=== PATIENT | female | born 1980 | race Caucasian/White ===

== ENCOUNTER 2021-06-13 13:08 | Emergency (ER) | payer MEDICAID ==
--- NOTE | 2021-06-13 13:27 | ED Physician Documentation ---
PD HPI SKIN - Stated complaint Stated Complaint: NECK PX,ABD PX - Chief complaint Chief Complaint: Back Pain - History obtained from History obtained from: Patient - History of Present Illness Timing - onset: How many weeks ago (1-2) Timing - duration: Weeks Timing - details: Gradual onset, Still present, Intermittant (regarding upper abd pains), Waxing and waning (regarding neck pain) Location: Neck, Other (Patient presents with several different complaints. 1 is a lump feeling in the back of her neck to the right of midline that is slightly tender and has been present for a long time. Also is new upper abdomen episodic spasming type pain that lasts for few minutes at a time uncorrelated with eating.) Quality / character: Other (slightly tender lump back of neck and feels that there is lump/fullness back of throat with swallowing.) Associated symptoms: Myalgias (chronic), Abd pain (eipsodic upper abd cramping pain for few minutes at a time, not correlated with food, position, activity.). No: Fever, Headache, N/V/D Similar symptoms before: Has not had sx before, Other (Regarding the neck pain, she has had herniated disc with canal stenosis at C5-6 by prior MRIs. No prior diagnosis with the lump in the neck nor the epigastric pain.) Recently seen: Not recently seen (had not gotten PMD since moving here in December. 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 ) Respiratory: None Endocrine/Autoimmune: None Musculoskeletal: Other (Julio Millan) - Present Medications Home Medications: Ambulatory Orders Medication Instructions Recorded Confirmed FLUoxetine [PROzac] 10 mg PO DAILY 06/13/21 06/13/21 Famotidine [Pepcid] 20 mg PO DAILY #20 tablet 06/13/21 - Allergies Allergies/Adverse Reactions: Allergies Allergy/AdvReac Type Severity Reaction Status Date / Time duloxetine [From Cymbalta] Allergy Unknown Verified 06/13/21 13:21 metoclopramide [From Reglan] Allergy Unknown Verified 06/13/21 13:21 - Living Situation Living Arrangement: reports: At home, Other (moved to [facility] December 2020. ) - Social History Does the pt smoke?: No Does the pt drink ETOH?: No Does the pt have substance abuse?: No - Family History Family history: reports: Other (Julio Millan) PD ED PE NORMAL - Vitals Vital signs reviewed: Yes - General General: Alert and oriented X 3, No acute distress, Well developed/nourished, Other (somewhat anxious. ) - HEENT HEENT: Moist mucous membranes, Pharynx benign - Neck Neck: Supple, no meningeal sign, No adenopathy, Thyroid normal, Other (posterior neck right of midline about C5 level with small pea-sized firm lump under skin that seems movable with neck movement separate from bony structures. ) - Cardiac Cardiac: RRR, No murmur - Respiratory Respiratory: Clear bilaterally - Abdomen Abdomen: Normal bowel sounds, Soft, Non distended, No organomegaly, Other (mild tender without guarding RUQ/epigastric. ) - Back Back: No CVA TTP - Derm Derm: Normal color, Warm and dry - Neuro Neuro: Alert and oriented X 3, No motor deficit, No sensory deficit, Normal speech Results - Vitals Vitals: Vital Signs - 24 hr 06/13/21 06/13/21 13:15 15:38 Temperature 36.6 C Heart Rate 111 H 80 Respiratory 18 17 Rate Blood Pressure 128/75 108/62 O2 Saturation 100 99 Oxygen O2 Source Room air - Labs Labs: Laboratory Tests 06/13/21 06/13/21 06/13/21 15:16 15:16 15:16 WBC 7.6 RBC 3.86 L Hgb 11.2 L Hct 34.0 L MCV 88.1 MCH 29.0 MCHC 32.9 RDW 15.7 H Plt Count 283 MPV 9.7 Neut # (Auto) 4.9 Lymph # (Auto) 2.1 [place] # (Auto) 0.5 Eos # (Auto) 0.1 Baso # (Auto) 0.1 Absolute Nucleated RBC 0.00 Nucleated RBC % 0.0 ESR 8 Sodium 139 Potassium 4.0 Chloride 104 Carbon Dioxide 26 Anion Gap 9.0 BUN 12 Creatinine 0.6 Estimated GFR (MDRD) 109 Glucose 97 Calcium 9.1 Magnesium 1.9 Total Bilirubin 0.4 AST 19 ALT 26 Alkaline Phosphatase 44 Total Protein 6.8 Albumin 4.3 Globulin 2.5 Albumin/Globulin Ratio 1.7 Lipase 33 TSH 06/13/21 15:16 WBC RBC Hgb Hct MCV MCH MCHC RDW Plt Count MPV Neut # (Auto) Lymph # (Auto) [place] # (Auto) Eos # (Auto) Baso # (Auto) Absolute Nucleated RBC Nucleated RBC % ESR Sodium Potassium Chloride Carbon Dioxide Anion Gap BUN Creatinine Estimated GFR (MDRD) Glucose Calcium Magnesium Total Bilirubin AST ALT Alkaline Phosphatase Total Protein Albumin Globulin Albumin/Globulin Ratio Lipase TSH 0.70 - Rads (name of study) abd U/S Radiology: Prelim report reviewed (gallstone in fundus, nonmobile per tech. No acute findings otherwise per report. ), See rad report soft tissue neck CT Radiology: Prelim report reviewed (Right sided aortic arch with some compression on the esophagus. Upper esophageal area and neck structures are normal. No reported abnormality in the area of the lump.), EMP read contemporaneously (My view of the CT shows perhaps some small thickening of soft tissue at the area of the posterior lump possibly considering lipoma. No cystic structure nor bony structure.), See rad report PD MEDICAL DECISION MAKING - ED course Complexity details: reviewed results, considered differential (3 complaints of: 1 chronic neck pain with C5-6 herniated disc by prior imaging and having ongoing neck pain, to #2 small lump feeling in the back of the neck adjacent to the spine area for 2 to 3 weeks, #3 episodic epigastric to right upper quadrant pains lasting few minutes at a time the past 2 wks), d/w patient ED course: She has had a noted lump feeling in the right paracervical area for several months but is slightly tender now. She also has a feeling of a fullness in the back of her throat with swallowing is concerned that they are connected. She does have history of chronic neck pain from disc disease and canal stenosis. Denies upper extremity weakness or numbness consistently. Occasionally numb in the left arm. She also notes more currently a couple weeks of intermittent epigastric to right upper quadrant spasmodic pain lasting seconds to a few minutes not correlated with breathing breathing, particular movements, injury, eating. It occurs randomly. No consistent pain Departure - Departure Disposition: Home, Self Care Clinical Impression: Epigastric pain, Lump in neck, Neck pain Condition: Stable Record reviewed to determine appropriate education?: Yes Follow-Up: Alex Cotto [Primary Care Provider] - Prescriptions: Famotidine [Pepcid] 20 mg PO DAILY #20 tablet Comments: Your neck imaging shows a right sided aortic arch which does pressure on the esophagus anatomically. This could give some discomfort with swallowing but would be more in the chest area not in the throat or neck area that you have been feeling. There is no obvious abnormality in that area. The posterior neck lump that you are feeling also as not having a visible structure per se on imaging. There is perhaps some lower density soft tissue in that area that may be consistent with a lipoma but no obvious cyst or bony structure etc. Your ultrasound shows a gallstone in the body of the gallbladder but its not mobile there is no sign of wall thickening. This is less likely that this is causing problems. Potentially it could associate with episodic gallbladder spasms. However your episodic upper abdominal pain may relate more to reflux or irritation of the stomach or esophagus. I would suggest daily famotidine as an acid reducing medicine and see if that improves things. Continue usual medications. Follow-up with your new provider in 3 weeks as planned. Your new provider will need to refer you to a neck specialist for further evaluation of your known disc disease.
[2021-06-13] MEDS ORDERED: SODIUM CHLORIDE 0.9% 1,000 ML IV STA (14:05)
[2021-06-13] MEDS ORDERED: IOVERSOL 320 100 ML VIAL IVP ONE ×2 (14:20→17:25)
[2021-06-13 15:25] LABS: BASOPHILS # (AUTO) 0.1 10^3/uL (0.0-0.1); BASOPHILS % (AUTO) 0.8 %; EOSINOPHILS # (AUTO) 0.1 10^3/uL (0.0-0.7); EOSINOPHILS % (AUTO) 1.1 %; HGB - HEMOGLOBIN 11.2 g/dL (12.0-16.0); LYMPHOCYTES # (AUTO) 2.1 10^3/uL (1.5-3.5); LYMPHOCYTES % (AUTO) 27.6 %; MEAN CORPUSCULAR HGB CONC 32.9 g/dL (32.0-36.0); MEAN CORPUSCULAR VOLUME 88.1 fL (81.0-99.0); MEAN PLATELET VOLUME 9.7 fL (7.9-10.8); MONOCYTES # (AUTO) 0.5 10^3/uL (0.0-1.0); MONOCYTES % (AUTO) 6.3 %; NEUTROPHILS # (AUTO) 4.9 10^3/uL (1.5-6.6); NEUTROPHILS % (AUTO) 63.9 %; PLT - PLATELET COUNT 283 10^3/uL (130-450); RED BLOOD COUNT 3.86 10^6/uL (4.20-5.40); RED CELL DISTRIBUTION WIDTH 15.7 % (12.0-15.0); WHITE BLOOD COUNT 7.6 x10^3/uL (4.8-10.8)
[2021-06-13 15:36] LABS: ALBUMIN 4.3 g/dL (3.2-5.5); ALBUMIN/GLOBULIN RATIO 1.7 (1.0-2.2); BILIRUBIN,TOTAL 0.4 mg/dL (0.2-1.0); CALCIUM 9.1 mg/dL (8.5-10.3); CREATININE 0.6 mg/dL (0.4-1.0); MAGNESIUM 1.9 mg/dL (1.7-2.8); TOTAL PROTEIN 6.8 g/dL (6.7-8.2)
--- NOTE | 2021-06-13 16:17 | Ultrasound Report ---
PROCEDURE: Abdomen Limited, ultrasound INDICATIONS: right upper abd pain intermittently TECHNIQUE: Real-time focused scanning was performed of the abdomen, with image documentation. COMPARISON: None FINDINGS: Liver: Normal is size and echotexture. No evidence of focal mass lesion. No intra hepatic biliary ductal dilatation. Gallbladder: Cholelithiasis noted without gallbladder wall thickening or pericholecystic fluid Common Bile Duct: 0.3 mm. Pancreas: Unremarkable as visualized. Right Kidney: Appropriate in size and echotexture. No evidence of hydronephrosis. No shadowing calc kristyn. No solid or cystic mass lesion. IMPRESSION: 1. Cholelithiasis without ultrasound evidence of acute cholecystitis Reviewed by: Carlos Anton MD on 06/13/2021 3:15 PM AKDT Approved by: Carlos Anton MD on 06/13/2021 3:15 PM AKDT Station ID: [id number]
--- NOTE | 2021-06-13 16:19 | CT Report ---
PROCEDURE: SOFT TISSUE NECK W INDICATIONS: right paracervical lump and feeling of lump swallo CONTRAST: IV CONTRAST: Optiray 320 ml: 100 PO CONTRAST: *NO PO CONTRAST TECHNIQUE: After the administration of intravenous contrast, 3.0 mm axial sections acquired from the sella to th e aortic arch. Additional oblique axial 3.0 mm sections acquired through the pharynx. 3 mm thick co woody reformats were generated. For radiation dose reduction, the following was used: automated exp osure control, adjustment of mA and/or kV according to patient size. COMPARISON: None. FINDINGS: Image quality: Excellent. Lymph nodes: No enlarged lymph nodes seen throughout the neck. 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 This is seen posterior to t he esophagus, with mass effect upon the esophagus itself. This can be seen on series 4 image 112. Neck spaces: The oropharynx, nasopharynx, and pharynx demonstrate no mucosal lesions. The vocal cor ds, false vocal cords, pyriform sinuses, epiglottis, vallecula, and tongue base all appear normal. E xtramucosal spaces appear unremarkable. Glands: The parotid and submandibular glands appear normal. The thyroid is normal in size and there are no incidental findings. Miscellaneous: Visualized brain and orbits appear normal. Lung apices appear clear. Superficial so ft tissues appear normal. Bones: No suspicious bony lesions. Visualized sinuses and mastoids appear unremarkable. 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 This demonstrates prominent mass effect u herlinda the esophagus and is the cause of the patient's dysphagia until proven otherwise. No mucosal masses are seen. No enlarged lymph nodes are seen. Reviewed by: Fabricio Chatterjee MD on 06/13/2021 3:18 PM CODEY Approved by: Fabricio Chatterjee MD on 06/13/2021 3:18 PM AKCHEPE Station ID: [id number]
[2021-06-13 17:02] VITALS: BP 114/60
== END 2021-06-13 17:02 | disposition home or self-care (01) ==
LOC: ED 13:08
DX: M54.2 Cervicalgia (principal); R22.1 Localized swelling, mass and lump, neck
CPT/HCPCS: 36415; 70491; 76705; 80053; 83690; 83735; 84443; 85025; 85651; 99284; Q9967

== ENCOUNTER 2021-12-18 13:00 | Emergency (ER) | payer MEDICAID, OTHER ==
[2021-12-18 13:13] VITALS: BP 134/96
== END 2021-12-18 13:50 | disposition left against medical advice (07) ==
LOC: ED 13:00
DX: Z53.29 Procedure and treatment not carried out because of patient's decision for other reasons (principal)

== ENCOUNTER 2022-01-31 11:51 | Outpatient (CLI) | payer MEDICAID ==
[2022-01-31 12:21] LABS: BASOPHILS % (AUTO) 0.7 %; EOSINOPHILS # (AUTO) 0.1 10^3/uL (0.0-0.7); EOSINOPHILS % (AUTO) 1.1 %; HCT - HEMATOCRIT 39.7 % (37.0-47.0); HGB - HEMOGLOBIN 13.2 g/dL (12.0-16.0); LYMPHOCYTES # (AUTO) 1.6 10^3/uL (1.5-3.5); LYMPHOCYTES % (AUTO) 29.1 %; MEAN CORPUSCULAR HEMOGLOBIN 31.7 pg (27.0-31.0); MEAN CORPUSCULAR HGB CONC 33.2 g/dL (32.0-36.0); MEAN CORPUSCULAR VOLUME 95.4 fL (81.0-99.0); MEAN PLATELET VOLUME 9.7 fL (7.9-10.8); MONOCYTES # (AUTO) 0.5 10^3/uL (0.0-1.0); MONOCYTES % (AUTO) 9.4 %; NEUTROPHILS # (AUTO) 3.3 10^3/uL (1.5-6.6); NEUTROPHILS % (AUTO) 59.5 %; PLT - PLATELET COUNT 276 10^3/uL (130-450); RED BLOOD COUNT 4.16 10^6/uL (4.20-5.40); RED CELL DISTRIBUTION WIDTH 11.7 % (12.0-15.0); WHITE BLOOD COUNT 5.6 x10^3/uL (4.8-10.8)
[2022-01-31 12:23] LABS: ALBUMIN 4.7 g/dL (3.2-5.5); ALBUMIN/GLOBULIN RATIO 1.7 (1.0-2.2); BILIRUBIN,TOTAL 0.6 mg/dL (0.2-1.0); CALCIUM 9.4 mg/dL (8.5-10.3); CREATININE 0.6 mg/dL (0.4-1.0); POTASSIUM 4.2 mmol/L (3.5-5.0); TOTAL PROTEIN 7.4 g/dL (6.7-8.2)
[2022-01-31 12:31] LABS: BILIRUBIN,URINE NEGATIVE (NEGATIVE); GLUCOSE, URINE (UA) NEGATIVE (NEGATIVE); KETONES,URINE (UA) NEGATIVE (NEGATIVE); LEUKOCYTE ESTERASE, URINE NEGATIVE (NEGATIVE); NITRITE,URINE NEGATIVE (NEGATIVE); OCCULT BLOOD,URINE NEGATIVE (NEGATIVE); PH,URINE 7.5 PH (5.0-7.5); PROTEIN,URINE NEGATIVE (NEGATIVE); UROBILINOGEN,URINE 0.2 (NORMAL) E.U./dL (NORMAL)
[2022-01-31 12:35] LABS: CLARITY,URINE CLEAR (CLEAR)
[2022-01-31 12:37] LABS: BACTERIA,URINE Rare /HPF (None Seen); RBC,URINE None Seen /HPF (0-5); SQUAMOUS EPITHELIAL CELL,UR RARE Squamous (<= Few); WBC,URINE 0-3 /HPF (0-5)
== END 2022-01-31 11:52 | disposition home or self-care (01) ==
LOC: LAB 11:51
PROVIDERS: ATTEND Nurse Practitioner
DX: R10.11 Right upper quadrant pain (principal)
CPT/HCPCS: 36415; 80053; 81001; 82150; 83690; 85025; 87086

== ENCOUNTER 2022-02-01 12:00 | Outpatient (CLI) | payer MEDICAID ==
[2022-02-02 20:04] LABS: H. PYLORIS ANTIGEN STL NEGATIVE (Negative)
== END 2022-02-01 23:59 | disposition home or self-care (01) ==
LOC: LAB 12:00
PROVIDERS: ATTEND Nurse Practitioner
DX: R10.11 Right upper quadrant pain (principal)
CPT/HCPCS: 87338

== ENCOUNTER 2022-03-07 11:51 | Outpatient (CLI) | payer MEDICAID ==
--- NOTE | 2022-03-07 16:29 | Ultrasound Report ---
PROCEDURE: Pelvic w/Transvaginal INDICATIONS: UTERINE FIBROIDS TECHNIQUE: Real-time scanning was performed of the pelvic organs, with image documentation. Additional endovagi nal scanning was necessary due to incomplete visualization of the adnexal and endometrial structures by transabdominal scanning. COMPARISON: None. FINDINGS: Uterus: Uterus is anteverted and normal in size at 7.8 x 5.7 x 4.1 cm. The myometrium is diffusely heterogeneous and there is decreased definition of the endometrial stripe.. The endometrium measures about 7 mm in combined thickness. There is a 7 mm heterogeneously hypoechoic intramural mass in the anterior midline fundus. A 4 mm anterior myometrial mass towards the lower uterine segment demonstra manolo more homogeneous hypoechogenicity. No significant internal vascular flow. Nabothian cysts are present in the cervix. Ovaries: The right ovary measures 2.3 x 1.8 x 1.6 cm, with a calculated ovarian volume of 4.8 cc. T he left ovary measures 2.3 x 1.7 x 1.5 cm, with a calculated ovarian volume of 3.1 cc. The ovaries h ave a normal sonographic appearance. The left ovary contains a single subcentimeter follicle. The ri ght ovary, seen by transabdominal imaging also contains a single subcentimeter follicle.. No adnexal masses are seen. Other: No pathologic free abdominal or pelvic fluid. IMPRESSION: 1. Diffusely heterogeneous uterus consistent with adenomyosis. 2. Very tiny anterior myometrial fibroids without encroachment on the endometrium. 3. Normal physiologic appearance of the ovaries. No dominant cyst or solid mass. Reviewed by: Sharon Angel MD on 03/07/2022 4:28 PM PST Approved by: Sharon Angel MD on 03/07/2022 4:28 PM PST Station ID: [id number]
== END 2022-03-07 11:52 | disposition home or self-care (01) ==
LOC: DI 11:51
PROVIDERS: ATTEND Nurse Practitioner
DX: D25.9 Leiomyoma of uterus, unspecified (principal)

== ENCOUNTER 2022-04-29 14:42 | Outpatient (CLI) | payer MEDICAID ==
[2022-04-29] MEDS ORDERED: iohexoL-300 100 ML VIAL ONE (14:51)
[2022-04-29] MEDS ORDERED: iohexoL-300 100 ML VIAL IVP ONE (17:17)
--- NOTE | 2022-04-29 22:34 | CT Report ---
PROCEDURE: ANGIO HEAD W/WO INDICATIONS: PULSATILE TINNITUS OF BOTH EARS CONTRAST: 80mL Omni 300 TECHNIQUE: Precontrast 4.5 mm thick angled axial sections acquired from the foramen magnum to the vertex. Afte r the administration of intravenous contrast, 1 mm thick sections acquired through the [place] of [place] is. Postcontrast 4.5 mm thick sections then re-acquired from the foramen magnum to the vertex. 3-di mensional zuucvzr-fvtlbhckv-evuyrvaott (MIP) and/or volume rendering reformats were acquired of the c entral intracranial vasculature. For radiation dose reduction, the following was used: automated ex posure control, adjustment of mA and/or kV according to patient size. COMPARISON: CTA neck 04/29/2022 FINDINGS: Image quality: Excellent. Anterior circulation: Intracranial internal carotid arteries are normal in size and flow. The flow within the paired anterior cerebral arteries is normal and symmetric. The flow within the middle cer ebral arteries is normal and symmetric. The anterior communicating artery is seen. No aneurysms are seen. Posterior circulation: Visualized portions of the vertebral arteries demonstrate normal caliber, and join to form a normal appearing basilar artery. Flow within the posterior cerebral arteries is norm al and symmetric. No aneurysms are seen. CSF spaces: Ventricles are normal in size and shape. Basal cisterns are patent. No extra-axial flu id collections. Brain: No midline shift. No intracranial bleeds or masses. Mckoy-white matter interface appears int act. Skull and face: Calvarium and facial bones appear intact, without suspicious lesions. Sinuses: Visualized sinuses are clear. There is fluid with near complete opacification of the left m astoid air cells. This is become progressive compared to 06/13/2021. IMPRESSION: 1. No acute intracranial process. 2. Complete opacification left mastoid air cells with fluid progressive compared to 06/13/2021. Recomm end correlation to potential symptoms of mastoiditis. Reviewed by: Maricruz Ruby MD on 04/29/2022 10:32 PM PST Approved by: Maricruz Ruby MD on 04/29/2022 10:32 PM PST Station ID: [id number]
--- NOTE | 2022-04-29 22:36 | CT Report ---
PROCEDURE: ANGIO NECK W INDICATIONS: PULSATILE TINNITUS OF BOTH EARS CONTRAST: 80mL Omni 300 TECHNIQUE: After the administration of intravenous contrast, 1.5 mm axial sections acquired from the aortic arch to the [place] of [place]. Coronal 3-D maximum intensity projection (MIP) and/or volume rendering ref ormats were then performed. For radiation dose reduction, the following was used: automated exposur e control, adjustment of mA and/or kV according to patient size. COMPARISON: CTA head 04/29/2022, CT neck 06/13/2021. FINDINGS: Image quality: Excellent. Carotid system: There appears to be a right-sided aortic arch with a apparent subclavian vasculature. It is not fully included within the [id number]. No priors are available for comparison. The origi ns of the common carotid arteries appear patent. The common carotid arteries demonstrate normal sandra bers and courses. The bifurcation regions appear normal bilaterally. The internal carotid arteries demonstrate normal caliber and course. Posterior circulation: The origins of the vertebral arteries appear patent. The more superior porti ons of the vertebral arteries demonstrate normal course and caliber. They join to form a normal appe aring basilar artery. Soft tissues: Visualized neck soft tissues demonstrate no suspicious abnormalities. The thyroid is normal in size and there are no incidental findings. There is near complete opacification of left mas toid air cells, progressive compared to prior exam. Bones: No suspicious bony lesions. Visualized cervical spine appears normally aligned. IMPRESSION: There are no areas of hemodynamically significant stenosis, vascular occlusion or aneurysmal dilation within the neck vasculature. Fluid is present with near complete opacification of the right mastoid air cells, progressive compare d to 2021. Recommend correlation to potential symptoms of mastoiditis. Apparent congenital anatomy demonstrating right-sided aortic arch, not fully included within the fiel d of view. No priors are available for comparison. The estimate of stenosis included in the report of the imaging study was calculated using the NASCET method CLINICAL RECOMMENDATION STATEMENTS: In patients <35 years with an ITN detected on CT, MRI, or extrathyroidal ultrasound, the Committee re commends further evaluation with dedicated thyroid ultrasound if the nodule is "e1 cm and has no susp icious imaging features, and if the patient has normal life expectancy. In patients "e35 years with an ITN detected on CT, MRI, or extrathyroidal ultrasound, the Committee r ecommends further evaluation with dedicated thyroid ultrasound if the nodule is "e1.5 cm and has no s uspicious imaging features, and if the patient has normal life expectancy. (ACR, 2014) Reviewed by: Maricruz Ruby MD on 04/29/2022 10:34 PM PST Approved by: Maricruz Ruby MD on 04/29/2022 10:34 PM PST Station ID: [id number]
== END 2022-04-29 14:43 | disposition home or self-care (01) ==
LOC: DI 14:42
PROVIDERS: ATTEND Physician Assistant
DX: H93.A3 Pulsatile tinnitus, bilateral (principal); H93.8X2 Other specified disorders of left ear
CPT/HCPCS: 70496; 70498; Q9967

== ENCOUNTER 2022-07-25 10:19 | Outpatient (CLI) | payer MEDICAID | END 2022-07-25 10:20 | disposition home or self-care (01) | LOC: NS 10:19 | PROVIDERS: ATTEND Nurse Practitioner | DX: Z71.3 Dietary counseling and surveillance (principal); R63.4 Abnormal weight loss; Z68.1 Body mass index [BMI] 19.9 or less, adult | CPT/HCPCS: 97802 ==

== ENCOUNTER 2022-08-08 10:48 | Outpatient (CLI) | payer MEDICAID ==
--- NOTE | 2022-08-11 09:58 | Ultrasound Report ---
LIMITED ULTRASOUND OF LEFT BREAST AND AXILLA: 08/08/2022 CLINICAL: Palpable left breast lump. No prior exams were available for comparison. Color flow and real-time ultrasound of the left breast 12 o'clock, and axilla regions were performed . Mckoy scale images of the real-time examination were reviewed. There is a 1.2 cm x 0.7 cm x 1 cm irregular mass with angular margins in the left breast at 12 o'cloc k anterior depth 1 cm from the nipple. This irregular mass is hypoechoic and heterogeneously echogen ic with an echogenic boundary and no posterior acoustic shadowing or enhancement. This correlates as palpated and with mammography findings. There is associated architectural distortion. Color flow i maging demonstrates that there is an adjacent vascularity. There also is a lymph node with borderline eccentric cortical thickening in the left axilla. This ly mph node displays fatty hilum. IMPRESSION: HIGHLY SUGGESTIVE OF MALIGNANCY The 1.2 cm x 0.7 cm x 1 cm irregular mass in the left breast at 12 o'clock anterior depth is highly s uggestive of malignancy. An ultrasound guided biopsy is recommended. The lymph node with borderline eccentric cortical thickening in the left axilla is consistent with an enlarged lymph node and is at a low suspicion for malignancy. However, an ultrasound guided biopsy is recommended. If this lymph node appears normal on day of biopsy, then a biopsy of the lymph node m ay not need to be performed. Findings and recommendations were discussed with the patient by Dr. Street during today's evaluation. This exam was interpreted at Station ID: [id number]. Electronically Signed By: Hemanth Marie M.D. aty/:08/08/2022 13:02:11 Ultrasound BI-RADS: 5 Highly suggestive of malignancy BI-RADS CATEGORY: (5) - 5 Ultrasound [id number] Immediate follow-up LATERALITY: (L)
--- NOTE | 2022-08-11 09:58 | Mammography Report ---
BILATERAL DIGITAL DIAGNOSTIC MAMMOGRAM 3D/2D WITH EXAGGERATED CC SPOT COMPRESSION: 08/08/2022 CLINICAL: Palpable left breast lump. Due for bilateral. Comparison is made to exam dated: 12/14/2018 mammogram - [facility]. Both breasts are extremely dense, which lowers the sensitivity of mammography (category d />75% gland ular tissue). There is a 0.8 cm oval equal density focal asymmetry in the right breast at 9 o'clock posterior depth . This is more prominent and increased in size. There is a new 0.6 cm irregular equal density focal asymmetry in the left breast at 12 o'clock anteri or depth. This correlates as palpated, with area of clinical concern, and triangle skin marker. The re is architectural distortion associated with the focal asymmetry. No other significant masses or calcifications are seen in either breast. IMPRESSION: INCOMPLETE: NEEDS ADDITIONAL IMAGING EVALUATION The 0.8 cm oval equal density focal asymmetry in the right breast at 9 o'clock posterior depth resemb les a cyst or a lymph node and is indeterminate. An ultrasound is recommended for further evaluation and is scheduled to immediately follow this examination. The new 0.6 cm irregular equal density focal asymmetry in the left breast at 12 o'clock anterior dept h is indeterminate. An ultrasound is recommended for further evaluation and is scheduled to immediat alex follow this examination. Based on the Tyrer Cuzick model (a risk assessment model) the patients lifetime risk is 17.1% and he r 10 year risk is 3.0%. According to the ACR, ACS, and NCCN guidelines, an annual breast MRI exam anneliese ng with mammogram is recommended if the patients lifetime risk is 20% or greater. This exam was interpreted at Station ID: [id number]. NOTE: For mammograms, a report in lay terms will be sent to the patient. Approximately 15% of breast malignancies will not be visualized mammographically. In the management of a palpable breast mass, a negative mammogram must not discourage biopsy of a clinically suspicious lesion. Electronically Signed By: Hemanth Marie M.D. aty/:08/08/2022 12:38:53 ACR BI-RADS Category 0: Incomplete 3340F PARENCHYMAL PATTERN: (VD) - The breast(s) demonstrate(s) extremely dense parenchyma, limiting the sen sitivity of mammography. BI-RADS CATEGORY: (0) - 0 Ultrasound [id number] Immediate follow-up LATERALITY: (B)
--- NOTE | 2022-08-11 09:58 | Ultrasound Report ---
LIMITED ULTRASOUND OF RIGHT BREAST: 08/08/2022 CLINICAL: Patient returns today to evaluate a focal asymmetry in the right breast. Comparison is made to exams dated: 12/14/2018 mammogram - [facility], 08/08/2022 mammogram, and 08/08/2022 ultrasound - [facility]. Color flow and real-time ultrasound of the right breast 6-9 o'clock region were performed. Mckoy scal e images of the real-time examination were reviewed. There is a 1.2 cm x 0.2 cm x 0.6 cm oval cyst in the right breast at 7 o'clock middle depth 2 cm from the nipple. This oval cyst is anechoic. This correlates with mammography findings. Color flow karen ging demonstrates that there is no vascularity present. There also is a 0.6 cm x 0.3 cm x 0.5 cm taller than wide oval cyst in the right breast at 6 o'clock middle depth 3 cm from the nipple. This oval cyst is anechoic. This correlates as an incidental fin ding. Additionally, there is a 0.5 cm x 0.2 cm x 0.4 cm oval cyst in the right breast at 9 o'clock posterio r depth 5 cm from the nipple. This oval cyst is hypoechoic. This correlates as an incidental findin g. Color flow imaging demonstrates that there is no vascularity present. IMPRESSION: BENIGN There is no sonographic evidence of malignancy in the right breast. The 1.2 cm x 0.2 cm x 0.6 cm oval cyst in the right breast at 7 o'clock middle depth is consistent wi th a simple cyst and is benign. The 0.6 cm x 0.3 cm x 0.5 cm taller than wide oval cyst in the right breast at 6 o'clock middle depth is consistent with a simple cyst and is benign. The 0.5 cm x 0.2 cm x 0.4 cm oval cyst in the right breast at 9 o'clock posterior depth most likely i s a simple cyst and is benign. A 1 year screening right mammogram is recommended. Please see separate report for details of the left breast ultrasound. This exam was interpreted at Station ID: [id number]. Electronically Signed By: Hemanth Marie M.D. aty/:08/08/2022 12:55:18 Ultrasound BI-RADS: 2 Benign BI-RADS CATEGORY: (2) - 2 Mammogram [id number] 1 year screening LATERALITY: (R)
== END 2022-08-08 10:49 | disposition home or self-care (01) ==
LOC: DI 10:48
PROVIDERS: ATTEND Obstetrics & Gynecology
DX: N63.25 Unspecified lump in the left breast, overlapping quadrants (principal); R59.0 Localized enlarged lymph nodes; N60.11 Diffuse cystic mastopathy of right breast

== ENCOUNTER 2022-08-14 09:40 | Outpatient (CLI) | payer MEDICAID ==
[2022-08-14] MEDS ORDERED: LIDOCAINE-MPF 1% 5 ML VIAL ONE (10:07)
[2022-08-14] MEDS ORDERED: LIDOCAINE 1%-EPI 1:100000 20 ML MDV ONE (10:07)
[2022-08-14] MEDS ORDERED: LIDOCAINE-MPF 1% 5 ML VIAL TD ONE (12:13)
[2022-08-14] MEDS ORDERED: LIDOCAINE 1%-EPI 1:100000 20 ML MDV SUBQ ONE (12:14)
--- NOTE | 2022-08-15 12:37 | Mammography Report ---
UNILATERAL LEFT DIGITAL DIAGNOSTIC MAMMOGRAM POST-PROCEDURE IMAGING FOR MARKER PLACEMENT: 08/14/2022 CLINICAL: Post left breast ultrasound biopsy clip placement imaging. Comparison is made to exams dated: [facility] - [facility]. The left breast is extremely dense, which lowers the sensitivity of mammography (category d />75% gla ndular tissue). There is a marker clip in the appropriate position in the left breast at 12 o'clock anterior depth. IMPRESSION: POST PROCEDURE MAMMOGRAM FOR MARKER PLACEMENT There was a successful marker clip placement in the left breast anterior depth. Based on the Tyrer Cuzick model (a risk assessment model) the patients lifetime risk is 17.1% and he r 10 year risk is 3.0%. According to the ACR, ACS, and NCCN guidelines, an annual breast MRI exam anneliese ng with mammogram is recommended if the patients lifetime risk is 20% or greater. This exam was interpreted at Station ID: [id number]. NOTE: For mammograms, a report in lay terms will be sent to the patient. Approximately 15% of breast malignancies will not be visualized mammographically. In the management of a palpable breast mass, a negative mammogram must not discourage biopsy of a clinically suspicious lesion. Electronically Signed By: Papo Car M.D. acr/penrad:08/14/2022 13:29:32 ACR BI-RADS Category Post-procedure mammogram for marker placement PARENCHYMAL PATTERN: (VD) - The breast(s) demonstrate(s) extremely dense parenchyma, limiting the sen sitivity of mammography. BI-RADS CATEGORY: () - Unspecified - other recall n/a LATERALITY: (B)
--- NOTE | 2022-08-20 08:52 | Ultrasound Report ---
ULTRASOUND GUIDED BIOPSY LEFT BREAST: 08/14/2022 CLINICAL: Left breast mass. PATIENT CONSENT: Risks (minor bleeding, infection, vasovagal reaction and repeat procedure), benefits and alternatives were explained to the patient and written informed consent was obtained. Correlation is made to exams dated: 08/08/2022 ultrasound, 08/08/2022 mammogram - [facility], and 12/14/2018 mammogram - [facility]. An ultrasound guided biopsy using real-time ultrasound was performed for the 1.2 cm x 0.7 cm x 1 cm a bnormality located in the left breast at 12 o'clock anterior depth 1 cm from the nipple. The skin wa s prepped in the usual manner. A biopsy needle was placed adjacent to the abnormality under ultrasou nd guidance. Once the needle was documented to be in the correct location, a specimen was obtained u sing an automated biopsy gun. The specimen was sent to the laboratory for pathological analysis. IMPRESSION: ULTRASOUND GUIDED BIOPSY MALIGNANT Ultrasound guided biopsy of the 1.2 cm x 0.7 cm x 1 cm mass in the left breast anterior depth was per formed. Pathology indicates malignant invasive ductal carcinoma (ID). Pathology results are concord ant with imaging findings. A surgical/oncologic consultation is recommended. This exam was interpreted at Station ID: [id number]. Papo Marie M.D. acr,aty/:08/20/2022 08:26:11 BI-RADS CATEGORY: () - Unspecified - other recall n/a LATERALITY: (B)
--- NOTE | 2022-08-20 08:52 | Ultrasound Report ---
ULTRASOUND GUIDED BIOPSY LEFT BREAST WITH MARKING DEVICE INSERTED: 08/14/2022 CLINICAL: Left axillary node biopsy. PATIENT CONSENT: Risks (minor bleeding, infection, vasovagal reaction and repeat procedure), benefits and alternatives were explained to the patient and written informed consent was obtained. Correlation is made to exams dated: 08/14/2022 ultrasound biopsy, 08/08/2022 ultrasound, [facility], 12/14/2018 mammogram - [facility], and mammogram - [facility]. An ultrasound guided biopsy using real-time ultrasound was performed for the reniform shaped lymph no de located in the left axillary tail. The skin was prepped in the usual manner. Local anesthetic wa s administered to the access site. A small incision was made in the breast. The abnormality was luisito roached from the lateral aspect. An 18 gauge biopsy needle was placed adjacent to the abnormality un jacklyn ultrasound guidance. Once the needle was documented to be in the correct location, four specimen s were obtained using a BARD biopsy device. A clip was inserted into the biopsy cavity. Post proced ure imaging demonstrates the location device at the targeted area. The specimens were sent to the [facility] for pathological analysis. IMPRESSION: ULTRASOUND GUIDED BIOPSY BENIGN Ultrasound guided biopsy of the lymph node in the left axillary tail was successful. Pathology indic ates benign lymph node (LN). Pathology results are concordant with imaging findings. A surgical/onc ologic consultation is recommended for malignant mass in the ipsilateral breast biopsied same day. Pl ease see separate report for details. This exam was interpreted at Station ID: [id number]. Papo Marie M.D. acr,aty/:08/20/2022 08:27:23 BI-RADS CATEGORY: () - Unspecified - other recall n/a LATERALITY: (B)
== END 2022-08-14 09:41 | disposition home or self-care (01) ==
LOC: DI 09:40
PROVIDERS: ATTEND Obstetrics & Gynecology
DX: C50.112 Malignant neoplasm of central portion of left female breast (principal); Z17.0 Estrogen receptor positive status [ER+]
CPT/HCPCS: 19083; 38505

== ENCOUNTER 2023-02-16 14:45 | Emergency (ER) | payer MEDICAID ==
[2023-02-16 15:11] VITALS: BP 141/59; O2SAT 100
--- NOTE | 2023-02-16 15:26 | ED Physician Documentation ---
PD HPI SKIN - Stated complaint Stated Complaint: ARMPIT RASH,ITCHY - Chief complaint Chief Complaint: Wound - History obtained from History obtained from: Patient - Additional information Additional information: 43-year-old female with history of breast cancer status post bilateral mastectomy with radiation presents by private vehicle from home for evaluation of a rash underneath her left armpit. Patient states she is concerned because with her history she does not want to develop shingles. She states that the rash is itchy, but does not hurt. She has recently started wearing deodorant and shaving her armpits. Denies any other rashes. Review of Systems Constitutional: denies: Fever, Chills Skin: reports: Rash. 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 - Present Medications Home Medications: Ambulatory Orders Medication Instructions Recorded Confirmed FLUoxetine [PROzac] 10 mg PO DAILY 06/13/21 06/13/21 Famotidine [Pepcid] 20 mg PO DAILY #20 tablet 06/13/21 - Allergies Allergies/Adverse Reactions: Allergies Allergy/AdvReac Type Severity Reaction Status Date / Time duloxetine [From Cymbalta] Allergy Unknown Verified 12/18/21 13:13 metoclopramide [From Reglan] Allergy Unknown Verified 12/18/21 13:13 - Social History Does the pt smoke?: No Smoking Status: Never smoker Does the pt drink ETOH?: No Does the pt have substance abuse?: No PD ED PE NORMAL - Vitals Vital signs reviewed: Yes - General General: Alert and oriented X 3, No acute distress, Well developed/nourished - Cardiac Cardiac: RRR - Respiratory Respiratory: No respiratory distress, Clear bilaterally - Derm Derm: Normal color, Warm and dry, Other (Pruritic rash under L armpit. No crusting, no weeping. 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 Patient states her primary concern is shingles. At this time based on the patient's description of symptoms as well as the appearance of the rash on exam this appears to be more consistent with an allergic rash rather than shingles. I recommended that the patient avoid shaving or using deodorant in this area and to apply hydrocortisone cream as needed for itching. Patient will follow-up with her cancer team later this week in [place] and will monitor the rash for any signs of change. Departure - Departure Disposition: 01 Home, Self Care Clinical Impression: Rash Instructions: ED Dermatitis Non Specific Rash Comments: At this time the rash appears to be allergic in character. Avoid deodorant, shaving, or applying harsh creams or lotion to this area. Use the steroid cream that you have 2-3 times daily and keep the area clean and dry. If it starts to become more painful, burning, stinging, or starts to spread across your chest please return for repeat evaluation, however at this time I feel that this is more allergic in nature than shingles. Forms: PCP List Discharge Date/Time: 02/16/23 15:33
== END 2023-02-16 15:33 | disposition home or self-care (01) ==
LOC: ED 14:45
DX: R21 Rash and other nonspecific skin eruption (principal); Z85.3 Personal history of malignant neoplasm of breast
CPT/HCPCS: 99281; 99283

== ENCOUNTER 2023-02-27 15:27 | Emergency (ER) | payer MEDICAID ==
[2023-02-27 15:39] VITALS: O2SAT 100
[2023-02-27 15:48] VITALS: BP 119/79
--- NOTE | 2023-02-27 15:53 | ED Physician Documentation ---
History of Present Illness - Stated complaint Stated Complaint: RASH ON CHEST/ARMPIT - Chief complaint Chief Complaint: General - History obtained from History obtained from: Patient - Additonal information Additional information: 43-year-old woman with history of breast cancer status post bilateral mastectomy and radiation has had a rash in the left axilla since . Initially thought to be dermatitis and did get improvement with hydrocortisone. Subsequently discussed with her oncologist and they felt it was probably shingles and she was prescribed Valtrex but wants further testing prior to starting it. 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 - Present Medications Home Medications: Ambulatory Orders Medication Instructions Recorded Confirmed FLUoxetine [PROzac] 10 mg PO DAILY 06/13/21 06/13/21 Famotidine [Pepcid] 20 mg PO DAILY #20 tablet 06/13/21 - Allergies Allergies/Adverse Reactions: Allergies Allergy/AdvReac Type Severity Reaction Status Date / Time Corticosteroids Allergy Unknown Verified 02/27/23 15:36 (Glucocorticoids) duloxetine [From Cymbalta] Allergy Unknown Verified 12/18/21 13:13 gabapentin Allergy Unknown Verified 02/27/23 15:36 metoclopramide [From Reglan] Allergy Unknown Verified 12/18/21 13:13 - Social History Does the pt smoke?: No Smoking Status: Never smoker Does the pt drink ETOH?: No Does the pt have substance abuse?: No PD ED PE NORMAL - Vitals Vital signs reviewed: Yes - General General: Alert and oriented X 3, No acute distress - Derm Derm: Other (She is a very mild vesicular rash that looks frankly to mild to be shingles in the left axilla.) - Psych Psych: Normal mood, Normal affect Results - Vitals Vitals: Vital Signs - 24 hr 02/27/23 15:32 Temperature 36.5 C Heart Rate 92 Respiratory 18 Rate Blood Pressure 119/79 O2 Saturation 100 Oxygen O2 Source Room air PD Medical Decision Making - ED course ED course: Could be resolving shingles versus some other rash. She would like a confirmatory test and a PCR was done. Discussed with her that regardless it was probably too late to start Valtrex. Departure - Departure
== END 2023-02-27 16:00 | disposition home or self-care (01) ==
LOC: ED 15:27
DX: R21 Rash and other nonspecific skin eruption (principal)
CPT/HCPCS: 81599; 99282; 99283

== ENCOUNTER 2023-09-14 15:23 | Emergency (ER) | payer MEDICAID ==
[2023-09-14 15:44] VITALS: O2SAT 100
--- NOTE | 2023-09-14 18:03 | Ultrasound Report ---
PROCEDURE: Duplex Ext Veins Left INDICATIONS: Left arm swell TECHNIQUE: Real-time imaging, as well as color and pulse Doppler interrogation, was performed of the left upper extremity deep veins from the inferior neck to the antecubital fossa. COMPARISON: None. FINDINGS: The internal jugular vein, visualized portions of the subclavian vein, axillary, and brach ial veins are free of intraluminal thrombus. Where physically possible, the veins are normally compr essible. Color and pulse Doppler demonstrate normal intraluminal flow, with expected phasicity and p ulsatility. Additional scanning of the cephalic and basilic veins of the superficial system demonstr ate normal compressibility, without thrombus. A few small superficial lymph nodes noted. Small lymph node in the region of clinical concern at the left upper arm. IMPRESSION: No left upper extremity DVT. Small benign-appearing lymph node at the region of clinical concern at the left upper arm. Reviewed by: Carlo Street MD on 09/14/2023 6:02 PM PDT Approved by: Carlo Street MD on 09/14/2023 6:02 PM PDT Station ID: [id number]
--- NOTE | 2023-09-14 18:53 | ED Physician Documentation ---
History of Present Illness - Stated complaint Stated Complaint: LT ARM PX - Chief complaint Chief Complaint: Ext Problem - Additonal information Additional information: 43-year-old female presents emergency department for left lower arm swelling and pain. Patient says that she was just recently in [place] and said that she has had about an elevation gain of about 9000 feet. 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 She called her oncologist to let her know that she has an enlarged forearm mass. No recent fevers or chills she also said that she had left eye redness and broken blood vessels in her left eye and this has now fully resolved but the left forearm lump has not. No recent fevers or chills there is no erythremia surrounding the bump it is mobile does not appear to be fluctuant. 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 - Present Medications Home Medications: Ambulatory Orders Medication Instructions Recorded Confirmed FLUoxetine [PROzac] 10 mg PO DAILY 06/13/21 06/13/21 Famotidine [Pepcid] 20 mg PO DAILY #20 tablet 06/13/21 - Allergies Allergies/Adverse Reactions: Allergies Allergy/AdvReac Type Severity Reaction Status Date / Time Corticosteroids Allergy Unknown Verified 09/14/23 15:32 (Glucocorticoids) duloxetine [From Cymbalta] Allergy Unknown Verified 09/14/23 15:32 gabapentin Allergy Unknown Verified 09/14/23 15:32 metoclopramide [From Reglan] Allergy Unknown Verified 09/14/23 15:32 - Social History Does the pt smoke?: No Smoking Status: Never smoker Does the pt drink ETOH?: No Does the pt have substance abuse?: No - Immunizations Immunizations are current?: No - POLST Patient has POLST: No PD ED PE NORMAL - Vitals Vital signs reviewed: Yes - General General: Alert and oriented X 3, No acute distress, Well developed/nourished - Derm Derm: Normal color, Warm and dry, No rash, Other (3. Rash to left forearm) - Extremities Extremities: Other (About a 1 x 1 cm mass that is mobile to left forearm near the AC. No purulent drainage.) Results - Vitals Vitals: Vital Signs - 24 hr 09/14/23 18:58 Temperature 36.2 C L Heart Rate 71 Respiratory 16 Rate Blood Pressure 128/68 O2 Saturation 100 Oxygen O2 Source Room air - Rads (name of study) Left forearm ultrasound Relevant Findings:: Final report received, EMP independent interpretation of test, Other (Small benign appearing lymph node at the region of the clinical concern of the left upper arm.) PD Medical Decision Making - ED course ED course: 43-year-old female presents emergency department for left forearm pain and swelling. I considered abscess but ultrasound was complete for further evaluation and she appears to have a small benign-appearing lymph node to the left forearm region just below the AC. There is no erythema it does not appear to be drainable does not appear to be infected. Patient was told to follow-up with her oncologist for further evaluation and workup for this at this point in time there is no further emergent workup indicated. Departure - Departure Disposition: 01 Home, Self Care Clinical Impression: Enlarged lymph node Instructions: ED Lymphedema Comments: Thank you for trusting us with your care. We have completed an ultrasound of your left upper extremity and you appear to have an enlarged benign lymph node. There is nothing further that we need to do here please follow-up with your oncologist and primary care provider for further investigation. Forms: PCP List Discharge Date/Time: 09/14/23 18:58
[2023-09-14 19:11] VITALS: BP 128/68
== END 2023-09-14 18:58 | disposition home or self-care (01) ==
LOC: ED 15:23
DX: R59.0 Localized enlarged lymph nodes (principal)
CPT/HCPCS: 99283; 99284